=== PATIENT | male | born 1970 | race Caucasian/White ===

== ENCOUNTER 2019-08-05 15:29 | Inpatient (IN) | payer BC, OTHER ==
[~2019-08-05] VITALS: Ht 167.6 cm; Wt 118.0 kg
[2019-08-05] MEDS ORDERED: ATOR20TA86 PO (15:49)
[2019-08-05] MEDS ORDERED: CLON0.2T PO (15:49)
[2019-08-05] MEDS ORDERED: INSU100V SQ (15:50)
[2019-08-05] MEDS ORDERED: ASCO500 PO (15:50)
[2019-08-05] MEDS ORDERED: TACR.5 PO (15:50)
[2019-08-05] MEDS ORDERED: METO50 PO (15:50)
[2019-08-05] MEDS ORDERED: INSLAN SQ (15:50)
[2019-08-05] MEDS ORDERED: PRED10 PO (15:50)
[2019-08-05] MEDS ORDERED: FURO20 PO (15:50)
[2019-08-05] MEDS ORDERED: CALCIUM GLUCONATE 0.465 MEQ/ML 10 ML VIAL IVP ONE (16:30)
[2019-08-05 16:49] LABS: BASOPHILS % (AUTO) 0.2 % (0.0-2.0); EOSINOPHILS % (AUTO) 0 % (1.0-6.0); HEMATOCRIT 41.6 % (41-53); HEMOGLOBIN 14.5 g/dL (13.5-17.5); LYMPHOCYTES # (AUTO) 0.4 K/uL (1.0-4.8); LYMPHOCYTES % (AUTO) 5.5 % (22.0-44.0); MEAN CORPUSCULAR HEMOGLOBIN 30.1 pg (26.0-34.0); MEAN CORPUSCULAR HGB CONC 34.8 G/dL (31.0-37.0); MEAN CORPUSCULAR VOLUME 86 fL (80-100); MONOCYTES % (AUTO) 14.5 % (2.0-9.0); NEUTROPHILS # (AUTO) 5.7 K/uL (1.8-7.7); NEUTROPHILS % (AUTO) 79.8 % (40.0-70.0); PLATELET COUNT (AUTO) 399 K/uL (150-450); RED BLOOD CELL COUNT(AUTO) 4.81 MIL/uL (4.50-5.90); RED CELL DISTRIBUTION WIDTH 13.9 % (11.5-14.5)
[2019-08-05 16:56] LABS: CREATININE 1.84 mg/dL (0.60-1.30)
[2019-08-05] MEDS ORDERED: ONDANSETRON HCL 4 MG/2 ML VIAL IVP PRN ×2 (17:00→19:30)
[2019-08-05] MEDS ORDERED: ACETAMINOPHEN 325 MG TABLET PO PRN (17:00)
[2019-08-05] MEDS ORDERED: 0.9% SODIUM CHLORIDE 10 ML SYRINGE IVP PRN (17:00)
[2019-08-05 17:34] LABS: C-REACTIVE PROTEIN QUANT 12.83 mg/dL (0.00-0.30); TOTAL PROTEIN, SERUM 7.4 g/dL (6.4-8.2)
[2019-08-05 17:36] LABS: LACTIC ACID 3.7 mmol/L (0.4-2.0)
[2019-08-05] MEDS ORDERED: MAGNESIUM HYDROXIDE SUSPENSION 30 ML UDCUP PO PRN (19:30)
[2019-08-05] MEDS ORDERED: MORPHINE SULFATE 2 MG/ML SYRINGE IVP PRN (19:30)
[2019-08-05] MEDS ORDERED: BISACODYL 10 MG RECTAL RECTAL SUPPOSITORY PR PRN (19:30)
[2019-08-05] MEDS ORDERED: ZOLPIDEM TARTRATE 5 MG TABLET PO PRN (19:30)
[2019-08-05] MEDS ORDERED: HYDROCODONE/ACETAMINOPHEN 5-325 MG TABLET PO PRN (19:30)
[2019-08-05 19:35] LABS: GLUCOSE,POINT OF CARE 224 MG/DL (70-110)
[2019-08-05 20:00] VITALS: BP 154/64
[2019-08-05] MEDS: DOCUSATE SODIUM 100 MG CAPSULE PO SCH (21:00)
[2019-08-05] MEDS: ASCORBIC ACID 500 MG TABLET PO SCH (21:00)
[2019-08-05] MEDS ORDERED: DEXTROSE 50%-WATER 25 GM/50 ML SYRINGE IVP PRN (21:15)
[2019-08-05] MEDS: THIAMINE 100 MG/ML 2 ML VIAL IVP SCH (22:02)
[2019-08-05] MEDS: ZINC SULFATE 220 MG CAPSULE PO SCH (22:03)
[2019-08-05] MEDS: FAMOTIDINE 20 MG TABLET PO SCH (22:03)
[2019-08-05] MEDS: INSULIN LISPRO 100 UNITS/ML SQ PRN (22:05)
[2019-08-05 22:48] LABS: ABG A-A DIFF O2 152.4 mmHg (10-20.0); ABG BASE EXCESS -7.5 mmol/L (-2.0-3.0); ABG CARBOXYHEMOGLOBIN 0.6 % (0.0-1.5); ABG HCO3 19.2 mmol/L (22.0-26.0); ABG METHEMOGLOBIN 0.3 % (0.0-1.5); ABG OXYGEN CONTENT 18.8 mL/dL (15.0-23.0); ABG OXYGEN SATURATION 92.5 % (95.0-98.0); ABG OXYHEMOGLOBIN 91.7 % (94.0-100.0); ABG PCO2 32 mmHg (35-45); ABG PH 7.361 (7.35-7.450); ABG TOTAL HEMOGLOBIN 14.6 G/dL (12.0-18.0); PO2, ARTERIAL BG 66.7 mmHg (84.0-92.0); SOURCE, BLOOD GAS ARTERIAL; TEMPERATURE, FAHRENHEIT, BG 98.6 FAHREN (96.0-98.6)
[2019-08-05 22:50] LABS: O2 DEVICE,BLOOD GAS CANNULA (ROOM AIR); SITE, BLOOD GAS RT RADIAL
[2019-08-06 00:53] VITALS: BP 122/60
[2019-08-06 05:14] VITALS: BP 128/57
[2019-08-06] MEDS: INSULIN LISPRO 100 UNITS/ML SQ PRN ×2 (06:42→13:18)
[2019-08-06 07:31] LABS: CALCIUM, TOTAL 9.4 mg/dL (8.8-10.5); CREATININE 1.93 mg/dL (0.60-1.30); POTASSIUM 5.3 mmol/L (3.5-5.1)
[2019-08-06 08:18] LABS: ALBUMIN 2.8 g/dL (3.4-5.0); BILIRUBIN,TOTAL 0.8 mg/dL (0.1-1.0); C-REACTIVE PROTEIN QUANT 12.64 mg/dL (0.00-0.30); TOTAL PROTEIN, SERUM 7.1 g/dL (6.4-8.2)
[2019-08-06 08:19] VITALS: BP 144/67
[2019-08-06] MEDS: HEPARIN SODIUM,PORCINE 5,000 UNITS/ML VIAL SQ SCH ×3 (08:55→16:50)
[2019-08-06] MEDS: THIAMINE 100 MG/ML 2 ML VIAL IVP SCH (08:55)
[2019-08-06] MEDS: PANTOPRAZOLE SODIUM 40 MG DR TABLET PO SCH (08:56)
[2019-08-06] MEDS: DOCUSATE SODIUM 100 MG CAPSULE PO SCH (08:56)
[2019-08-06] MEDS: ZINC SULFATE 220 MG CAPSULE PO SCH (08:56)
[2019-08-06] MEDS: ASCORBIC ACID 500 MG TABLET PO SCH ×2 (08:56→16:50)
[2019-08-06] MEDS ORDERED: AZITHROMYCIN 500 MG TABLET PO SCH (09:00)
[2019-08-06 09:19] LABS: D-DIMER 0.68 mg/L FEU (0.00-0.50)
[2019-08-06] MEDS ORDERED: INSULIN GLARGINE,HUM.REC.ANLOG 100 UNITS/ML SQ SCH (11:45)
[2019-08-06 12:21] VITALS: BP 132/48
[2019-08-06 17:00] VITALS: BP 122/66
[2019-08-06] MEDS ORDERED: INSULIN LISPRO 100 UNITS/ML SQ ONE (18:30)
[2019-08-06] MEDS ORDERED: SODIUM CHLORIDE 0.9% 1,000 ML IV SCH (18:43)
[2019-08-06] MEDS ORDERED: PredniSONE 5 MG TABLET PO SCH (18:45)
[2019-08-06 21:11] VITALS: BP 121/58
[2019-08-06] MEDS ORDERED: HYDROXYCHLOROQUINE SULFATE 200 MG TABLET PO ONE (23:15)
[2019-08-07] MEDS: FAMOTIDINE 20 MG TABLET PO SCH ×2 (00:35→22:33)
[2019-08-07] MEDS: TACROLIMUS ANHYDROUS 0.5 MG CAPSULE PO SCH ×3 (00:35→22:32)
[2019-08-07] MEDS: DOCUSATE SODIUM 100 MG CAPSULE PO SCH ×3 (00:35→21:00)
[2019-08-07] MEDS: PredniSONE 10 MG TABLET PO SCH ×2 (00:35→09:40)
[2019-08-07] MEDS: ASCORBIC ACID 500 MG TABLET PO SCH ×4 (00:36→22:33)
[2019-08-07] MEDS: THIAMINE 100 MG/ML 2 ML VIAL IVP SCH ×3 (00:43→22:31)
[2019-08-07] MEDS: ZINC SULFATE 220 MG CAPSULE PO SCH ×3 (00:43→22:33)
[2019-08-07] MEDS: INSULIN GLARGINE,HUM.REC.ANLOG 100 UNITS/ML SQ SCH ×2 (01:47→10:01)
[2019-08-07] MEDS: INSULIN LISPRO 100 UNITS/ML SQ PRN ×5 (01:48→22:36)
[2019-08-07 04:52] VITALS: BP 154/73
[2019-08-07 06:59] LABS: BASOPHILS % (AUTO) 0.1 % (0.0-2.0); EOSINOPHILS % (AUTO) 0.1 % (1.0-6.0); HEMATOCRIT 37.1 % (41-53); HEMOGLOBIN 12.9 g/dL (13.5-17.5); LYMPHOCYTES # (AUTO) 0.2 K/uL (1.0-4.8); MEAN CORPUSCULAR HEMOGLOBIN 29.9 pg (26.0-34.0); MEAN CORPUSCULAR HGB CONC 34.8 G/dL (31.0-37.0); MEAN CORPUSCULAR VOLUME 86 fL (80-100); MONOCYTES # (AUTO) 1.1 K/uL (0.1-1.0); MONOCYTES % (AUTO) 10.7 % (2.0-9.0); NEUTROPHILS # (AUTO) 8.8 K/uL (1.8-7.7); PLATELET COUNT (AUTO) 424 K/uL (150-450); RED BLOOD CELL COUNT(AUTO) 4.31 MIL/uL (4.50-5.90); RED CELL DISTRIBUTION WIDTH 13.7 % (11.5-14.5)
[2019-08-07 07:05] LABS: NEUTROPHILS % (AUTO) 87.1 % (40.0-70.0)
[2019-08-07 07:58] LABS: ALBUMIN 2.5 g/dL (3.4-5.0); BILIRUBIN,TOTAL 0.8 mg/dL (0.1-1.0); C-REACTIVE PROTEIN QUANT 14.93 mg/dL (0.00-0.30); CALCIUM, TOTAL 8.7 mg/dL (8.8-10.5); CREATININE 1.63 mg/dL (0.60-1.30); MAGNESIUM 1.5 mg/dL (1.80-2.40); PHOSPHORUS 2.9 mg/dL (2.5-4.9); POTASSIUM 5.8 mmol/L (3.5-5.1); TOTAL PROTEIN, SERUM 6.6 g/dL (6.4-8.2)
[2019-08-07] MEDS ORDERED: SODIUM ZIRCONIUM CYCLOSILICATE 5 GM POWDER PACKET PO ONE (08:15)
[2019-08-07] MEDS ORDERED: HYDROXYCHLOROQUINE SULFATE 200 MG TABLET PO ONE (08:30)
[2019-08-07] MEDS ORDERED: MAGNESIUM SULFATE 3 GM in DEXTROSE 5%-WATER 100 ML IV ONE (08:30)
[2019-08-07 09:27] LABS: GLUCOMETER DEV NAME(LOC) 5N.1; GLUCOSE,POINT OF CARE 325 MG/DL (70-110)
[2019-08-07 09:28] LABS: GLUCOMETER DEV NAME(LOC) 5N.1; GLUCOSE,POINT OF CARE 379 MG/DL (70-110)
[2019-08-07 09:28] LABS: GLUCOMETER DEV NAME(LOC) 5N.1; GLUCOSE,POINT OF CARE 402 MG/DL (70-110)
[2019-08-07 09:28] LABS: GLUCOMETER DEV NAME(LOC) 5N.1; GLUCOSE,POINT OF CARE 425 MG/DL (70-110)
[2019-08-07] MEDS: HEPARIN SODIUM,PORCINE 5,000 UNITS/ML VIAL SQ SCH ×4 (09:38→22:45)
[2019-08-07] MEDS: PANTOPRAZOLE SODIUM 40 MG DR TABLET PO SCH (09:39)
[2019-08-07] MEDS: SODIUM CHLORIDE 3% 500 ML IV SCH (11:08)
[2019-08-07 12:47] VITALS: BP 150/77
[2019-08-07 15:49] VITALS: BP 140/62
[2019-08-07 17:39] LABS: APPEARANCE,URINE CLEAR (CLEAR); BILIRUBIN,URINE NEGATIVE (NEGATIVE); GLUCOSE, URINE (UA) >=1000 mg/dL (NEGATIVE); KETONES,URINE 15 mg/dL (NEGATIVE); LEUKOCYTE ESTERASE ,URINE NEGATIVE (NEGATIVE); NITRATE,URINE NEGATIVE (NEGATIVE); OCCULT BLOOD,URINE NEGATIVE (NEGATIVE); PH,URINE 5.5 (5.0-8.0); PROTEIN,URINE TRACE (NEGATIVE); UROBILINOGEN,URINE 0.2 mg/dL (<=1.0)
[2019-08-07 17:41] LABS: CALCIUM, TOTAL 9.1 mg/dL (8.8-10.5); CREATININE 1.58 mg/dL (0.60-1.30); POTASSIUM 5.2 mmol/L (3.5-5.1)
[2019-08-07 17:42] LABS: CREATININE,URINE RANDOM 126.6 mg/dL (30.0-125.0); SODIUM,URINE RANDOM 11 mmol/l (20-110); UREA NITROGEN,URINE RANDOM 917 mg/dL (350-1000)
[2019-08-07 17:46] LABS: OSMOLALITY,URINE 570 mOS/kg (50-1200)
[2019-08-07 18:11] LABS: BACTERIA,URINE None Seen /HPF (None Seen); RBC,URINE None Seen /HPF (0-2); SQUAMOUS EPITHELIAL CELL,UR None Seen /LPF (None Seen); WBC,URINE None Seen /HPF (0-5)
[2019-08-07 20:25] VITALS: BP 155/75
[2019-08-07] MEDS ORDERED: INSULIN GLARGINE,HUM.REC.ANLOG 100 UNITS/ML SQ SCH (21:00)
[2019-08-07] MEDS: HYDROXYCHLOROQUINE SULFATE 200 MG TABLET PO SCH (22:32)
[2019-08-08] VITALS (7 sets, daily range): BP systolic 127–156; BP diastolic 58–84
[2019-08-08 02:39] LABS: GLUCOMETER DEV NAME(LOC) 5S.2A; GLUCOSE,POINT OF CARE 301 MG/DL (70-110)
[2019-08-08 02:39] LABS: GLUCOMETER DEV NAME(LOC) 5S.2A; GLUCOSE,POINT OF CARE 200 MG/DL (70-110)
[2019-08-08 02:40] LABS: GLUCOMETER DEV NAME(LOC) 5S.2A; GLUCOSE,POINT OF CARE 456 MG/DL (70-110)
[2019-08-08] MEDS: SODIUM CHLORIDE 3% 500 ML IV SCH (04:16)
[2019-08-08] MEDS: ACETAMINOPHEN 325 MG TABLET PO PRN ×2 (04:16→23:08)
[2019-08-08 05:18] LABS: CALCIUM, TOTAL 8.7 mg/dL (8.8-10.5); CREATININE 1.38 mg/dL (0.60-1.30); MAGNESIUM 1.8 mg/dL (1.80-2.40); PHOSPHORUS 1.9 mg/dL (2.5-4.9); POTASSIUM 4.7 mmol/L (3.5-5.1); THYROID STIMULATING HORMONE 0.14 uIU/mL (0.36-3.74)
[2019-08-08] MEDS: INSULIN LISPRO 100 UNITS/ML SQ PRN ×3 (05:56→17:48)
[2019-08-08] MEDS ORDERED: SODIUM PHOS,M-BASIC-D-BASIC 20 MEQ in DEXTROSE 5%-WATER 100 ML IV ONE (07:30)
[2019-08-08 07:49] LABS: GLUCOMETER DEV NAME(LOC) 5N.1; GLUCOSE,POINT OF CARE 329 MG/DL (70-110)
[2019-08-08 07:49] LABS: GLUCOMETER DEV NAME(LOC) 5N.1; GLUCOSE,POINT OF CARE 380 MG/DL (70-110)
[2019-08-08 07:49] LABS: GLUCOMETER DEV NAME(LOC) 5N.1; GLUCOSE,POINT OF CARE 317 MG/DL (70-110)
[2019-08-08 07:49] LABS: GLUCOMETER DEV NAME(LOC) 5N.1; GLUCOSE,POINT OF CARE 318 MG/DL (70-110)
[2019-08-08] MEDS ORDERED: FUROSEMIDE 40 MG/4 ML VIAL IVP ONE (10:00)
[2019-08-08] MEDS: TACROLIMUS ANHYDROUS 0.5 MG CAPSULE PO SCH ×2 (10:31→23:09)
[2019-08-08] MEDS: PredniSONE 10 MG TABLET PO SCH (10:31)
[2019-08-08] MEDS: DOCUSATE SODIUM 100 MG CAPSULE PO SCH ×2 (10:31→21:00)
[2019-08-08] MEDS: ZINC SULFATE 220 MG CAPSULE PO SCH ×2 (10:31→23:09)
[2019-08-08] MEDS: HEPARIN SODIUM,PORCINE 5,000 UNITS/ML VIAL SQ SCH ×2 (10:32→15:52)
[2019-08-08] MEDS: PANTOPRAZOLE SODIUM 40 MG DR TABLET PO SCH (10:32)
[2019-08-08] MEDS: THIAMINE 100 MG/ML 2 ML VIAL IVP SCH ×2 (10:32→23:10)
[2019-08-08] MEDS: ASCORBIC ACID 500 MG TABLET PO SCH ×3 (10:32→23:09)
[2019-08-08] MEDS: HYDROXYCHLOROQUINE SULFATE 200 MG TABLET PO SCH ×2 (11:17→23:10)
[2019-08-08] MEDS ORDERED: REMDESIVIR **INVESTIGATIONAL** 200 MG in SODIUM CHLORIDE 0.9% 210 ML IV ONE (12:00)
[2019-08-08 12:20] LABS: GLUCOMETER DEV NAME(LOC) 5S.1; GLUCOSE,POINT OF CARE 270 MG/DL (70-110)
[2019-08-08 12:50] LABS: ALBUMIN 2.4 g/dL (3.4-5.0); BILIRUBIN,DIRECT 0.2 mg/dL (0.00-0.20); BILIRUBIN,TOTAL 0.6 mg/dL (0.1-1.0); C-REACTIVE PROTEIN QUANT 16.36 mg/dL (0.00-0.30); TOTAL PROTEIN, SERUM 6.5 g/dL (6.4-8.2)
[2019-08-08] MEDS ORDERED: SODIUM CHLORIDE 0.9% 250 ML IV ONE (18:05)
[2019-08-08 20:41] LABS: GLUCOMETER DEV NAME(LOC) 5S.1; GLUCOSE,POINT OF CARE 254 MG/DL (70-110)
[2019-08-08] MEDS: FAMOTIDINE 20 MG TABLET PO SCH (23:11)
[2019-08-08] MEDS: INSULIN GLARGINE,HUM.REC.ANLOG 100 UNITS/ML SQ SCH (23:11)
[2019-08-09] MEDS ORDERED: AZITHROMYCIN 500 MG/NS 250 ML IV SCH (01:00)
[2019-08-09 03:20] LABS: GLUCOMETER DEV NAME(LOC) 5N.1; GLUCOSE,POINT OF CARE 182 MG/DL (70-110)
[2019-08-09 04:36] VITALS: BP 137/58
[2019-08-09] MEDS: INSULIN LISPRO 100 UNITS/ML SQ PRN ×2 (06:49→18:54)
[2019-08-09 07:16] LABS: BASOPHILS % (AUTO) 0.5 % (0.0-2.0); EOSINOPHILS % (AUTO) 0.1 % (1.0-6.0); HEMATOCRIT 36.4 % (41-53); HEMOGLOBIN 12.6 g/dL (13.5-17.5); LYMPHOCYTES # (AUTO) 0.4 K/uL (1.0-4.8); LYMPHOCYTES % (AUTO) 2.3 % (22.0-44.0); MEAN CORPUSCULAR HEMOGLOBIN 29.5 pg (26.0-34.0); MEAN CORPUSCULAR HGB CONC 34.5 G/dL (31.0-37.0); MEAN CORPUSCULAR VOLUME 86 fL (80-100); MONOCYTES # (AUTO) 0.9 K/uL (0.1-1.0); MONOCYTES % (AUTO) 5.6 % (2.0-9.0); PLATELET COUNT (AUTO) 413 K/uL (150-450); RED BLOOD CELL COUNT(AUTO) 4.25 MIL/uL (4.50-5.90)
[2019-08-09 07:31] LABS: NEUTROPHILS % (AUTO) 91.5 % (40.0-70.0)
[2019-08-09 07:51] VITALS: BP 158/73
[2019-08-09] MEDS: DOCUSATE SODIUM 100 MG CAPSULE PO SCH (08:01)
[2019-08-09 08:02] LABS: ALANINE AMINOTRANSFERASE 18 U/L (12-78); ALBUMIN 2.2 g/dL (3.4-5.0); ALKALINE PHOSPHATASE 100 U/L (46-116); ANION GAP 13 mmol/L (8-16); ASPARTATE AMINOTRANSFERASE 30 U/L (15-37); BILIRUBIN,TOTAL 0.8 mg/dL (0.1-1.0); C-REACTIVE PROTEIN QUANT 24.77 mg/dL (0.00-0.30); CALCIUM, TOTAL 8.9 mg/dL (8.8-10.5); CARBON DIOXIDE 20 mmol/L (22-29); CHLORIDE 98 mmol/L (98-107); CREATININE 1.24 mg/dL (0.60-1.30); FERRITIN 866 ng/mL (26-388); FREE T4 (FREE THYROXINE) 1.79 ng/dL (0.76-1.46); GLOMERULAR FILTR. RATE CALC > 60 mL/min (>60); GLUCOSE,RANDOM 184 mg/dL (70-110); LACTATE DEHYDROGENASE 725 U/L (85-227); PHOSPHORUS 3.5 mg/dL (2.5-4.9); POTASSIUM 4.4 mmol/L (3.5-5.1); SODIUM SERUM 131 mmol/L (136-145); TOTAL PROTEIN, SERUM 6.3 g/dL (6.4-8.2); UREA NITROGEN, BLOOD 20 mg/dL (7-18)
[2019-08-09] MEDS: ASCORBIC ACID 500 MG TABLET PO SCH ×2 (08:26→18:17)
[2019-08-09] MEDS: TACROLIMUS ANHYDROUS 0.5 MG CAPSULE PO SCH (08:27)
[2019-08-09] MEDS: HEPARIN SODIUM,PORCINE 5,000 UNITS/ML VIAL SQ SCH ×3 (08:27→16:00)
[2019-08-09] MEDS: PredniSONE 10 MG TABLET PO SCH (08:27)
[2019-08-09] MEDS: ZINC SULFATE 220 MG CAPSULE PO SCH (08:27)
[2019-08-09] MEDS: THIAMINE 100 MG/ML 2 ML VIAL IVP SCH (08:27)
[2019-08-09] MEDS: PANTOPRAZOLE SODIUM 40 MG DR TABLET PO SCH (08:27)
[2019-08-09] MEDS: INSULIN GLARGINE,HUM.REC.ANLOG 100 UNITS/ML SQ SCH (08:28)
[2019-08-09] MEDS ORDERED: CefTRIAXone 1 GM/DEXTROSE 50 ML IV SCH (11:30)
[2019-08-09] MEDS ORDERED: SUCCINYLCHOLINE CHLORIDE 20 MG/ML 10 ML VIAL IVP ONE (12:00)
[2019-08-09] MEDS ORDERED: LIDOCAINE/PF 2% 5 ML VIAL INJ ONE (12:00)
[2019-08-09] MEDS ORDERED: ROCURONIUM BROMIDE 10 MG/ML 5 ML VIAL IVP ONE (12:00)
[2019-08-09] MEDS ORDERED: ETOMIDATE 2 MG/ML 10 ML VIAL IVP ONE (12:00)
[2019-08-09] MEDS ORDERED: REMDESIVIR **INVESTIGATIONAL** 100 MG in SODIUM CHLORIDE 0.9% 230 ML IV SCH (12:00)
[2019-08-09] MEDS ORDERED: PROPOFOL 1% 20 ML VIAL IVP ONE (12:00)
[2019-08-09] MEDS ORDERED: SODIUM CHLORIDE 0.9% 500 ML IV ONE ×2 (12:21→15:36)
[2019-08-09] MEDS ORDERED: LISI-662 PO (12:51)
[2019-08-09 14:30] LABS: ABG A-A DIFF O2 642.3 mmHg (10-20.0); ABG BASE EXCESS -5.5 mmol/L (-2.0-3.0); ABG CARBOXYHEMOGLOBIN 0.6 % (0.0-1.5); ABG HCO3 20.1 mmol/L (22.0-26.0); ABG METHEMOGLOBIN 0.2 % (0.0-1.5); ABG OXYGEN CONTENT 13.8 mL/dL (15.0-23.0); ABG OXYHEMOGLOBIN 72.6 % (94.0-100.0); ABG PCO2 35 mmHg (35-45); ABG PH 7.374 (7.35-7.450); ABG TOTAL HEMOGLOBIN 13.6 G/dL (12.0-18.0); SOURCE, BLOOD GAS ARTERIAL; TEMPERATURE, FAHRENHEIT, BG 98.2 FAHREN (96.0-98.6)
[2019-08-09 14:32] LABS: ABG OXYGEN SATURATION 73.2 % (95.0-98.0); PO2, ARTERIAL BG 36.7 mmHg (84.0-92.0); SITE, BLOOD GAS LFT BRACHIAL
[2019-08-09 14:33] LABS: O2 DEVICE,BLOOD GAS HIGHFLOW N/C (ROOM AIR)
[2019-08-09] MEDS ORDERED: MAGNESIUM SULFATE 4 GM/WATER 100 ML IV ONE (14:45)
[2019-08-09] MEDS ORDERED: METO25 PO (14:48)
[2019-08-09] MEDS ORDERED: MIDAZOLAM HCL 2 MG/2 ML VIAL ONE (15:43)
[2019-08-09] MEDS ORDERED: FentaNYL CITRATE-PF 100 MCG/2 ML VIAL ONE (15:44)
[2019-08-09 16:00] VITALS: BP 124/54
[2019-08-09] MEDS ORDERED: ROCURONIUM BROMIDE 10 MG/ML 5 ML VIAL ONE (16:10)
[2019-08-09] MEDS ORDERED: PROPOFOL 1000 MG/ISO-OSM 100 ML IV ONE (16:14)
[2019-08-09 16:24] LABS: ABG A-A DIFF O2 605.4 mmHg (10-20.0); ABG BASE EXCESS -9.5 mmol/L (-2.0-3.0); ABG CARBOXYHEMOGLOBIN 1.1 % (0.0-1.5); ABG HCO3 15.6 mmol/L (22.0-26.0); ABG METHEMOGLOBIN 0.3 % (0.0-1.5); ABG OXYGEN CONTENT 12.2 mL/dL (15.0-23.0); ABG OXYHEMOGLOBIN 61.2 % (94.0-100.0); ABG TOTAL HEMOGLOBIN 14.2 G/dL (12.0-18.0); SOURCE, BLOOD GAS ARTERIAL; TEMPERATURE, FAHRENHEIT, BG 98.2 FAHREN (96.0-98.6)
[2019-08-09 16:26] LABS: ABG OXYGEN SATURATION 62.1 % (95.0-98.0); ABG PCO2 67 mmHg (35-45); PO2, ARTERIAL BG 41.5 mmHg (84.0-92.0); SITE, BLOOD GAS ARTERIAL LINE
[2019-08-09 16:27] LABS: O2 DEVICE,BLOOD GAS VENTILATOR (ROOM AIR); PEEP,BG 15 cm H2O; SPONTANEOUS VT, BG 538 ml; VT, ABG 500 ml
[2019-08-09 16:42] LABS: ABG A-A DIFF O2 588.2 mmHg (10-20.0); ABG BASE EXCESS -10.3 mmol/L (-2.0-3.0); ABG CARBOXYHEMOGLOBIN 0.9 % (0.0-1.5); ABG HCO3 15.5 mmol/L (22.0-26.0); ABG METHEMOGLOBIN 0.3 % (0.0-1.5); ABG OXYGEN CONTENT 16.5 mL/dL (15.0-23.0); ABG OXYHEMOGLOBIN 82.6 % (94.0-100.0); ABG PCO2 64 mmHg (35-45); ABG TOTAL HEMOGLOBIN 14.2 G/dL (12.0-18.0); PO2, ARTERIAL BG 61.7 mmHg (84.0-92.0); SOURCE, BLOOD GAS ARTERIAL; TEMPERATURE, FAHRENHEIT, BG 98.2 FAHREN (96.0-98.6)
[2019-08-09] MEDS ORDERED: CISATRACURIUM BESYLATE 20 MG in DEXTROSE 5%-WATER 90 ML IV PRN (17:00)
[2019-08-09 17:29] LABS: ABG OXYGEN SATURATION 83.6 % (95.0-98.0); ABG PH 7.101 (7.35-7.450); O2 DEVICE,BLOOD GAS VENTILATOR (ROOM AIR); PEEP,BG 15 cm H2O; SITE, BLOOD GAS ARTERIAL LINE; SPONTANEOUS VT, BG 503 ml; VT, ABG 500 ml
[2019-08-09] MEDS ORDERED: FentaNYL CITRATE PF 500 MCG in DEXTROSE 5%-WATER 90 ML IV PRN (17:29)
[2019-08-09 18:22] LABS: ABG A-A DIFF O2 574.3 mmHg (10-20.0); ABG BASE EXCESS -10.5 mmol/L (-2.0-3.0); ABG CARBOXYHEMOGLOBIN 0.8 % (0.0-1.5); ABG HCO3 15.1 mmol/L (22.0-26.0); ABG METHEMOGLOBIN 0.3 % (0.0-1.5); ABG OXYGEN CONTENT 16.5 mL/dL (15.0-23.0); ABG OXYHEMOGLOBIN 83.8 % (94.0-100.0); PO2, ARTERIAL BG 64.6 mmHg (84.0-92.0); SOURCE, BLOOD GAS ARTERIAL; TEMPERATURE, FAHRENHEIT, BG 98.2 FAHREN (96.0-98.6)
[2019-08-09 18:23] LABS: ABG OXYGEN SATURATION 84.7 % (95.0-98.0); ABG PCO2 75 mmHg (35-45); ABG PH 7.046 (7.35-7.450); O2 DEVICE,BLOOD GAS VENTILATOR (ROOM AIR); PEEP,BG 15 cm H2O; SITE, BLOOD GAS ARTERIAL LINE; SPONTANEOUS VT, BG 485 ml; VT, ABG 500 ml
[2019-08-09] MEDS ORDERED: PROPOFOL 1000 MG/ISO-OSM 100 ML IV PRN (18:30)
[2019-08-09 18:54] LABS: GLUCOSE,POINT OF CARE 393 MG/DL (70-110)
[2019-08-09 18:59] VITALS: BP 125/56
[2019-08-09] MEDS ORDERED: LEVOFLOXACIN 750 MG/D5% WATER 150 ML IV SCH (19:00)
[2019-08-09] MEDS ORDERED: CISATRACURIUM BESYLATE 50 MG in DEXTROSE 5%-WATER 245 ML IV PRN (19:30)
[2019-08-09 19:37] LABS: ABG A-A DIFF O2 575.1 mmHg (10-20.0); ABG BASE EXCESS -11.2 mmol/L (-2.0-3.0); ABG CARBOXYHEMOGLOBIN 0.6 % (0.0-1.5); ABG METHEMOGLOBIN 0.3 % (0.0-1.5); ABG OXYGEN CONTENT 16.8 mL/dL (15.0-23.0); ABG OXYGEN SATURATION 88.3 % (95.0-98.0); ABG OXYHEMOGLOBIN 87.5 % (94.0-100.0); ABG TOTAL HEMOGLOBIN 13.6 G/dL (12.0-18.0); PO2, ARTERIAL BG 70.8 mmHg (84.0-92.0); SOURCE, BLOOD GAS ARTERIAL; TEMPERATURE, FAHRENHEIT, BG 98.6 FAHREN (96.0-98.6)
[2019-08-09 19:38] LABS: ABG PCO2 67 mmHg (35-45); ABG PH 7.069 (7.35-7.450); O2 DEVICE,BLOOD GAS VENTILATOR (ROOM AIR); PEEP,BG 15 cm H2O; SITE, BLOOD GAS ARTERIAL LINE; VT, ABG 500 ml
[2019-08-09 20:30] LABS: INR 1.8 (0.9-1.1); PROTHROMBIN TIME 17.9 SEC (9.4-11.6)
[2019-08-09 20:59] VITALS: BP 103/54
[2019-08-09] MEDS ORDERED: METOPROLOL TARTRATE 25 MG TABLET PO SCH (21:00)
[2019-08-09] MEDS ORDERED: CEFEPIME HCL 2 GM in DEXTROSE 5%-WATER 50 ML IV SCH (23:00)
[2019-08-09] MEDS ORDERED: *CLINICAL-CEFEPIME DOSING CLINICAL ONE (23:00)
[2019-08-10 06:20] LABS: GLUCOSE,POINT OF CARE 437 MG/DL (70-110)
[2019-08-10 06:32] LABS: GLUCOMETER DEV NAME(LOC) 5S.2A; GLUCOSE,POINT OF CARE 177 MG/DL (70-110)
[2019-08-10 06:32] LABS: GLUCOMETER DEV NAME(LOC) 5S.2A; GLUCOSE,POINT OF CARE 261 MG/DL (70-110)
== END 2019-08-09 22:30 | disposition short-term general hospital (02) | DRG 208 ==
LOC: EMS 15:41 → 5N 19:36 → ICU 08-09 15:24 → ICUN 08-09 15:50
PROVIDERS: ADMIT Internal Medicine; ATTEND Internal Medicine
PROC: 30233K1 Transfusion of Nonautologous Frozen Plasma into Peripheral Vein, Percutaneous Approach (ICD-10-PCS; principal; 2019-08-08)
PROC: 5A1935Z Respiratory Ventilation, Less than 24 Consecutive Hours (ICD-10-PCS; 2019-08-09)
PROC: 0BH17EZ Insertion of Endotracheal Airway into Trachea, Via Natural or Artificial Opening (ICD-10-PCS; 2019-08-09)
DX: U07.1 COVID-19 (principal); J12.89 Other viral pneumonia; N18.6 End stage renal disease; J96.01 Acute respiratory failure with hypoxia; I12.0 Hypertensive chronic kidney disease with stage 5 chronic kidney disease or end stage renal disease; Z94.0 Kidney transplant status; Z99.11 Dependence on respirator [ventilator] status; Z68.41 Body mass index [BMI] 40.0-44.9, adult; E11.22 Type 2 diabetes mellitus with diabetic chronic kidney disease; E78.5 Hyperlipidemia, unspecified; E87.5 Hyperkalemia; I25.10 Atherosclerotic heart disease of native coronary artery without angina pectoris; E83.42 Hypomagnesemia; E11.65 Type 2 diabetes mellitus with hyperglycemia; E66.01 Morbid (severe) obesity due to excess calories; E83.39 Other disorders of phosphorus metabolism
CPT/HCPCS: 36600; 80197; 82533; 82570; 82728; 82805; 83605; 83615; 83735; 83930; 83935; 84100; 84145; 84295; 84300; 84439; 84443; 84481; 84540; 85379; 85384; 86140; 86850; 86900; 86901; 86927; 87040; 93005; 94002; G0378; J0330; J0456; J0610; J0692; J0696; J1644; J1815; J1940; J1956; J2250; J2704; J3010; J3411; J3475; J3490; J7030; J7040; J7050; J7060